=== PATIENT | female | born 1970 | race Caucasian/White ===

== ENCOUNTER 2017-04-07 13:41 | Emergency (ER) | payer OTHER ==
--- NOTE | 2017-04-07 15:41 | DIAGNOSTIC IMAGING REPORT ---
PROCEDURE: XR LUMBAR SPINE 2 OR 3 VIEWS INDICATION: LOWER BACK PAIN TECHNIQUE: Three views of the lumbar spine COMPARISON: None. FINDINGS: Five lumbar-type vertebral bodies are present. Normal vertebral body height without fracture. Normal AP alignment. Mild leftward curvature of the lumbar spine with the apex at the L3-4 level. Mild to moderate diffuse disc space loss with mild anterior endplate spurs. Moderately severe disc space loss at L5-S1. Moderate hypertrophy of the facet joints on the right at the L4-5 level. Surgical clips in the right upper pelvis. Partially imaged bilateral hip arthroplasties. Mildly increased amount of retained stool. IMPRESSION: 1. Mild to moderate diffuse degenerative disc disease. 2. Moderately severe degenerative disc height loss L5-S1. 3. Facet arthropathy on the right at the L4-5 level.
--- NOTE | 2017-04-07 15:50 | ED CLINICAL REPORT ---
Clinical Report - Physicians/Mid Levels [facility] [address] [place] [address] 04/07/2017 13:45 Patient: NARENDRA FALK Time Seen: 13:51. Arrived- By private vehicle. Historian- patient. HISTORY OF PRESENT ILLNESS Chief Complaint: BACK PAIN. Onset- about 1 week ago and it is still present. Modifying factors- worsened by rotation of the body to the right or left, bending over or lifting. Not relieved by anything. It is described as being moderate in degree and in the area of the lower lumbar spine. The quality is noted to be "pain". No bladder dysfunction, bowel dysfunction, sensory loss or motor loss. Patient denies an injury. No other injury. Similar symptoms previously: None. Recent medical care: The patient was seen recently at another facility in the emergency department. ( Patient states she was seen at [facility], where they performed blood work and a urinalysis both of which were negative.). REVIEW OF SYSTEMS No fever, chills, eye discomfort, headache or sore throat. No cough, difficulty breathing, chest pain, skin rash or abdominal pain. No nausea, vomiting, diarrhea, black stools or difficulty with urination. No urinary frequency, hematuria or bloody stools. All systems otherwise negative, except as recorded above. PAST HISTORY Problems: Breast Cancer. Dermatomyositis. Hypertension. Additional Surgeries: Appendectomy. Breast Augmentation. Tonsillectomy. Medications: Hypertension med-pt doesn't know the name. Muscle Relaxant. Tramadol HCL Oral. Allergies: None. SOCIAL HISTORY Smoker- current status unknown. No alcohol use or drug use. ADDITIONAL NOTES The nursing notes have been reviewed. PHYSICAL EXAM Vital Signs: 04/07/2017 13:47 BP: 136/99. HR: 117. RR: 17. O2 saturation: 99%. Temp: 98.4 F. Pain level now: 10/10. Have been reviewed. Appearance: Alert. No acute distress. (The patient appears mildly uncomfortable.). HEENT: Normal external inspection. Eyes: Pupils equal, round and reactive to light. Neck: Normal inspection. Neck nontender. Painless ROM. CVS: Normal heart rate and rhythm. Heart sounds normal. Pulses normal. Respiratory: No respiratory distress. Breath sounds normal. Abdomen: Normal inspection. Soft and nontender. Back: Moderate soft tissue tenderness in the right mid and lower and left mid and lower lumbar area. Mildly limited ROM in the back- in the lumbar spine: decreased flexion, right lateral bending, left lateral bending and rotation to the right and left. No vertebral point tenderness. Skin: Skin warm and dry. Normal skin color. No rash. Normal skin turgor. Extremities: Extremities exhibit normal ROM. Extremities nontender. Neuro: Oriented X 3. Mood/affect normal. No motor deficit. No sensory deficit. LABS, X-RAYS, AND EKG LS-Spine X-rays: Soft tissues normal. No fracture or subluxation. No bony lesion. Views: AP, lateral and obliques. Technique: good. The X-rays were independently viewed by me, interpreted by the radiologist and contemporaneously by me and discussed with the radiologist. Prior films were not available for comparison. Pulse Oximetry: 04/07/2017 13:47 O2 saturation: 99%. (FIO2 - room air). Interpretation: normal. PROGRESS AND PROCEDURES Course of Care: Patient was given IM Dilaudid and Toradol with some symptomatic relief. Lumbar spine x-rays were performed, and found to be unremarkable. I did discuss with the patient that most likely, her pain will blow over in the next couple of weeks; however if the symptoms do not resolveby that time, she should make an appointment with her primary care physician to speak about potentially getting an MRI. Patient and spouse counseled in person regarding the patient's stable condition, test results, diagnosis and need for follow-up. Concerns were addressed. Old medical records reviewed. Disposition: Discharged. Condition: stable and improved. CLINICAL IMPRESSION Muscle strain of the low back. INSTRUCTIONS Apply ice for 20 minutes three times a day as needed and until better. Don't apply ice directly to skin and don't use while asleep. (Your x-ray looks good. The bones and spaces between them are normal.). Warnings: SEDATIVE MEDICATION: You were given sedative medication during your visit. Do not drive or operate dangerous machinery for 6 hours. GENERAL WARNINGS: Return or contact your physician immediately if your condition worsens or changes unexpectedly, if not improving as expected, or if other problems arise. Your Current Medications: CONTINUE TAKING THE FOLLOWING MEDICATIONS: Hypertension med-pt doesn't know the name*. Muscle Relaxant*. Tramadol HCL Oral. Prescription Medications: Hydrocodone/APAP 5mg / 325mg: take 1-2 orally every 4 hours as needed for pain. Dispense twenty (20). No refill. Ibuprofen 800 mg tablets: take 1 tablet orally every 8 hours as needed for pain. Dispense twenty (20). No refill. Follow-up: Follow up with your doctor. Call for the next available appointment. Reason for referral: Discuss potential need for MRI. Understanding of the discharge instructions verbalized by patient. (Electronically signed by Bernarda Flores MD 04/17/2017 10:31)
--- NOTE | 2017-04-07 15:50 | ED NURSING NOTES ---
Clinical Report - Nurses [facility] [place] [address] [place] [address] 04/07/2017 13:45 Patient: NARENDRA FALK TRIAGE Triage time 13:47 Master 2016. Acuity: LEVEL 4. Chief Complaint: BACK PAIN and (pt reports sudden onset of low back pain x 1 week, no known injury, pt seen at [facility] and reports urine/blood work done all negative, denies loss bowel/bladder, was given muscle relaxer, pt then seen at urgent care and rx'd tramadol, reports no relief from either). Alert. No acute distress. RENNY COMA SCORE: [place] Coma Scale: 15- eyes open spontaneously (4); best verbal response- oriented x 4 (5); best motor response- obeys commands (6). --13:54 Remi Delacruz R.N. 13:47 04/07/17. BP: 136/99. HR: 117. RR: 17. O2 saturation: 99%. Temp: 98.4 F. Pain level now: 07/26. --13:54 Remi Delacruz R.N. Weight: 61.2 kg. Height/Length: 66 inches. BMI: 21.8. --13:52 Remi Delacruz R.N. Medications Tramadol HCL Oral. --13:50 Remi Delacruz R.N. Muscle Relaxant. --13:51 Remi Delacruz R.N. Hypertension med-pt doesn't know the name. --13:51 Remi Delacruz R.N. Medication/allergy information source: the patient. --13:54 Remi Delacruz R.N. Allergies None. --13:51 Remi Delacruz R.N. History Arrived by private vehicle. Historian: patient. No history of recent trauma. No numbness, weakness or extremity pain. 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 PAST MEDICAL HX: Tetanus status: up-to-date. Immunizations: up-to-date. Last normal menstrual period now. SOCIAL HX: Heavy tobacco smoker- less than 1 pack per day. No alcohol use or drug use. No infectious disease exposure. ABUSE ASSESSMENT: No report of abuse. SELF HARM ASSESSMENT: A self harm assessment was performed. The patient answered "no" to the question "Do you have thoughts of harming or killing yourself?". FALL RISK ASSESSMENT: Fall risk assessment completed. No fall risk identified. NUTRITIONAL RISK ASSESSMENT: The nutritional risk assessment revealed no deficiencies. FUNCTIONAL ASSESSMENT: Functional assessment: no impairments noted. LEARNING NEEDS ASSESSMENT: The learning needs assessment revealed no barriers. SKIN INTEGRITY ASSESSMENT: Skin integrity risk assessment completed. No skin integrity risk identified. --13:54 Remi Delacruz R.N. PROBLEMS: Breast Cancer. Dermatomyositis. Hypertension. --13:52 eRmi Delacruz R.N. ADDITIONAL SURGERIES: Appendectomy. Breast Augmentation. Tonsillectomy. --13:52 Remi Delacruz R.N. Interventions ID band on patient. --13:54 Remi Delacruz R.N. PHYSICAL ASSESSMENT Ambulatory to room. Patient gowned. GENERAL / NEURO / PSYCH: Alert. Oriented X 4. Appears anxious. RESPIRATORY: Respirations not labored. CVS: Capillary refill less than 2 seconds. EXTREMITIES: Sensation intact in extremities. ROM of extremities within normal limits. BACK: Normal inspection of the neck and back. --13:55 Remi Delacruz R.N. NURSING PROGRESS NOTES Neuro-vascular extremity check. Reassurance given. Patient identifiers checked. Call light placed in reach. Side rails up. Bed placed in lowest position. Brakes of bed on. Patient waiting for evaluation. --13:55 Remi Delacruz R.N. 15:13 04/07/2017 Dilaudid (HYDROmorphone HCl PF) IM 1 mg given. Given in the left gluteus anthony. Allergies verified, confirmed 5 rights and sedative warning given to the patient. --15:13 Remi Delacruz R.N. 15:14 04/07/2017 Toradol (Ketorolac Tromethamine) IM 60 mg given. Given in the right gluteus anthony. Allergies verified and confirmed 5 rights. --15:14 Remi Delacruz R.N. Patient transported to radiology by stretcher with tech. --15:14 Remi Delacruz R.N. 15:31 04/07/17. Patient identifiers checked. Call light placed in reach. Side rails up x 2. Bed placed in lowest position. Brakes of bed on. ( pt reports an improvement in pain "it's a 7 or 8" pt in poc on gurney, s/o at bedside, pt maee, watching tv, waiting plans for dispo). --15:52 Remi Delacruz R.N. DISPOSITION / DISCHARGE No learning barriers present. Discharge instructions provided and reviewed with the patient and spouse. Reviewed medication(s). Prescription(s) given to the patient. Patient verbalized understanding. Written instructions provided in Welsh. The patient was discharged by the physician. She was discharged home and accompanied by spouse. She left the Emergency Department ambulatory and via private vehicle. Spouse driving. ( pt ambulatory with steady gait to [employer], pt dressed self independently upon dispo, to f/u as scheduled with her pcp on tuesday the ). --16:04 Remi Delacruz R.N. 16:02 04/07/17. BP: 132/84. HR: 77. RR: 15. O2 saturation: 100%. Temp: deferred. Pain level now: 04/25. --16:04 Remi Delacruz R.N. Locked/Released at 04/07/2017 18:27 by Remi Delacruz R.N.
--- NOTE | 2017-04-07 15:50 | ED ORDER SUMMARY ---
..... Patient: NARENDRA FALK OrderSheet [facility] VisitID: [id number] [address] [place] [address] 46y, F Registration Date/Time: 04/07/2017 ORDER SHEET Weight: 61.2 kg Allergies: None GENERAL ORDERS: Lumbar Spine 2 or 3V Urgent (15:00 04/07/2017 Ev MATHUR) (Ack 15:07 Ambrocio) (15:14 KPaprudence-Kareem R.N.) MEDICATION ORDERS: Dilaudid IM 1 mg (HIGH ALERT MEDICATION, NOW) (15:04 04/07/2017 Ev MATHUR) (Ack 15:05 KPaprudence-Sheban R.N.) (15:13 KPage-Sheban R.N.) Toradol IM 60 mg (NOW) (15:04 04/07/2017 Ev MATHUR) (Ack 15:05 KPaprudence-Kareem R.N.) (15:14 KPaprudence-Sheban R.N.) IV FLUIDS: ORDER SHEET NOTES: [Electronically signed by Remi Delacruz R.N. (18:04/07/2017)] [Electronically signed by Bernarda Flores MD (10:31 04/17/2017)] [Electronically locked/signed by Remi Delacruz R.N. (18:27 04/07/2017)]
--- NOTE | 2017-04-07 15:50 | ED ORDER SUMMARY ---
..... Patient: NARENDRA FALK OrderSheet [facility] VisitID: [id number] [address] [place] [address] 46y, F Registration Date/Time: 04/07/2017 ORDER SHEET Weight: 61.2 kg Allergies: None GENERAL ORDERS: Lumbar Spine 2 or 3V Urgent (15:00 04/07/2017 Ev MATHUR) (Ack 15:07 Ambrocio) (15:14 KPaprudence-Kareem R.N.) MEDICATION ORDERS: Dilaudid IM 1 mg (HIGH ALERT MEDICATION, NOW) (15:04 04/07/2017 Ev MATHUR) (Ack 15:05 KPaprudence-Sheban R.N.) (15:13 KPage-Sheban R.N.) Toradol IM 60 mg (NOW) (15:04 04/07/2017 Ev MATHUR) (Ack 15:05 KPaprudence-Kareem R.N.) (15:14 KPaprudence-Sheban R.N.) IV FLUIDS: ORDER SHEET NOTES: [Electronically signed by Remi Delacruz R.N. (18:04/07/2017)] [Electronically signed by Bernarda Flores MD (10:31 04/17/2017)] [Electronically locked/signed by Remi Delacruz R.N. (18:27 04/07/2017)]
--- NOTE | 2017-04-07 15:50 | ED NURSING NOTES ---
Clinical Report - Nurses Located Within [facility] [place] [address] [place] [address] 04/07/2017 13:45 Patient: NARENDRA FALK TRIAGE Triage time 13:47 Master 2016. Acuity: LEVEL 4. Chief Complaint: BACK PAIN and (pt reports sudden onset of low back pain x 1 week, no known injury, pt seen at [facility] and reports urine/blood work done all negative, denies loss bowel/bladder, was given muscle relaxer, pt then seen at urgent care and rx'd tramadol, reports no relief from either). Alert. No acute distress. RENNY COMA SCORE: [place] Coma Scale: 15- eyes open spontaneously (4); best verbal response- oriented x 4 (5); best motor response- obeys commands (6). --13:54 Remi Delacruz R.N. 13:47 04/07/17. BP: 136/99. HR: 117. RR: 17. O2 saturation: 99%. Temp: 98.4 F. Pain level now: 07/26. --13:54 Remi Delacruz R.N. Weight: 61.2 kg. Height/Length: 66 inches. BMI: 21.8. --13:52 Remi Delacruz R.N. Medications Tramadol HCL Oral. --13:50 Remi Delacruz R.N. Muscle Relaxant. --13:51 Remi Delacruz R.N. Hypertension med-pt doesn't know the name. --13:51 Remi Delacruz R.N. Medication/allergy information source: the patient. --13:54 Remi Delacruz R.N. Allergies None. --13:51 Remi Delacruz R.N. History Arrived by private vehicle. Historian: patient. No history of recent trauma. No numbness, weakness or extremity pain. 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 PAST MEDICAL HX: Tetanus status: up-to-date. Immunizations: up-to-date. Last normal menstrual period now. SOCIAL HX: Heavy tobacco smoker- less than 1 pack per day. No alcohol use or drug use. No infectious disease exposure. ABUSE ASSESSMENT: No report of abuse. SELF HARM ASSESSMENT: A self harm assessment was performed. The patient answered "no" to the question "Do you have thoughts of harming or killing yourself?". FALL RISK ASSESSMENT: Fall risk assessment completed. No fall risk identified. NUTRITIONAL RISK ASSESSMENT: The nutritional risk assessment revealed no deficiencies. FUNCTIONAL ASSESSMENT: Functional assessment: no impairments noted. LEARNING NEEDS ASSESSMENT: The learning needs assessment revealed no barriers. SKIN INTEGRITY ASSESSMENT: Skin integrity risk assessment completed. No skin integrity risk identified. --13:54 Remi Delacruz R.N. PROBLEMS: Breast Cancer. Dermatomyositis. Hypertension. --13:52 Remi Delacruz R.N. ADDITIONAL SURGERIES: Appendectomy. Breast Augmentation. Tonsillectomy. --13:52 Remi Delacruz R.N. Interventions ID band on patient. --13:54 Remi Delacruz R.N. PHYSICAL ASSESSMENT Ambulatory to room. Patient gowned. GENERAL / NEURO / PSYCH: Alert. Oriented X 4. Appears anxious. RESPIRATORY: Respirations not labored. CVS: Capillary refill less than 2 seconds. EXTREMITIES: Sensation intact in extremities. ROM of extremities within normal limits. BACK: Normal inspection of the neck and back. --13:55 Remi Delacruz R.N. NURSING PROGRESS NOTES Neuro-vascular extremity check. Reassurance given. Patient identifiers checked. Call light placed in reach. Side rails up. Bed placed in lowest position. Brakes of bed on. Patient waiting for evaluation. --13:55 Remi Delacruz R.N. 15:13 04/07/2017 Dilaudid (HYDROmorphone HCl PF) IM 1 mg given. Given in the left gluteus anthony. Allergies verified, confirmed 5 rights and sedative warning given to the patient. --15:13 Remi Delacruz R.N. 15:14 04/07/2017 Toradol (Ketorolac Tromethamine) IM 60 mg given. Given in the right gluteus anthony. Allergies verified and confirmed 5 rights. --15:14 Remi Delacruz R.N. Patient transported to radiology by stretcher with tech. --15:14 Remi Delacruz R.N. 15:31 04/07/17. Patient identifiers checked. Call light placed in reach. Side rails up x 2. Bed placed in lowest position. Brakes of bed on. ( pt reports an improvement in pain "it's a 7 or 8" pt in poc on gurney, s/o at bedside, pt maee, watching tv, waiting plans for dispo). --15:52 Remi Delacruz R.N. DISPOSITION / DISCHARGE No learning barriers present. Discharge instructions provided and reviewed with the patient and spouse. Reviewed medication(s). Prescription(s) given to the patient. Patient verbalized understanding. Written instructions provided in Greek. The patient was discharged by the physician. She was discharged home and accompanied by spouse. She left the Emergency Department ambulatory and via private vehicle. Spouse driving. ( pt ambulatory with steady gait to [employer], pt dressed self independently upon dispo, to f/u as scheduled with her pcp on tuesday the ). --16:04 Remi Delacruz R.N. 16:02 04/07/17. BP: 132/84. HR: 77. RR: 15. O2 saturation: 100%. Temp: deferred. Pain level now: 04/25. --16:04 Remi Delacruz R.N. Locked/Released at 04/07/2017 18:27 by Remi Delacruz R.N.
--- NOTE | 2017-04-17 10:31 | ED MED RECONCILIATION SUMMARY ---
Patient: NARENDRA FALK Medication Reconciliation Report [facility] VisitID: [id number] [address] [place] [address] 46y, F Registration Date/Time: 04/07/2017 Weight: 61.2 kg Height/Length: 66 in. BMI: 21.8 ALLERGIES: None The patient's Home Medications are listed below: CONTINUE TAKING THE FOLLOWING MEDICATIONS: Hypertension med-pt doesn't know the name Muscle Relaxant Tramadol HCL Oral The source(s) of the original Home Medication information: patient The following Medications were given to the patient in the Emergency Department: Dilaudid [IM] IM 1 mg, administered: 04/07/2017 3:13:00 PM Toradol [IM] IM 60 mg, administered: 04/07/2017 3:14:00 PM The following Medications were prescribed to the patient: Hydrocodone/APAP 5mg / 325mg: take 1-2 orally every 4 hours as needed for pain. Dispense twenty (20). No refill. -- Bernarda Flores MD Ibuprofen 800 mg tablets: take 1 tablet orally every 8 hours as needed for pain. Dispense twenty (20). No refill. -- Bernarda Flores MD
--- NOTE | 2017-04-17 10:31 | ED MAR SUMMARY ---
..... Medication Administration Record [facility] [address] [place] [address] Patient: NARENDRA FALK Visit ID: [id number] 46y, F Weight: 61.2 kg Height/Length: 66 in BMI: 21.8 ALLERGIES: None Given 15:13 04/07/2017 Remi Delacruz, RAlpaNAlpa Medication Administered: DILAUDID [IM] (HYDROMORPHONE HCL PF), Dose: 1 mg IM. Medication Ordered: Dilaudid IM 1 mg (HIGH ALERT MEDICATION, NOW). Given 15:14 04/07/2017 Remi Delacruz, RAlpaN. Medication Administered: TORADOL [IM] (KETOROLAC TROMETHAMINE), Dose: 60 mg IM. Medication Ordered: Toradol IM 60 mg (NOW).
--- NOTE | 2017-04-17 10:31 | ED DISCHARGE INSTRUCTIONS ---
Patient: NARENDRA FALK General Instructions [facility] VisitID: [id number] [place] [address] 46y, F Registration Date/Time: 04/07/2017 Muscle strain of the low back. INSTRUCTIONS Apply ice for 20 minutes three times a day as needed and until better. Don't apply ice directly to skin and don't use while asleep. (Your x-ray looks good. The bones and spaces between them are normal.). Warnings: SEDATIVE MEDICATION: You were given sedative medication during your visit. Do not drive or operate dangerous machinery for 6 hours. GENERAL WARNINGS: Return or contact your physician immediately if your condition worsens or changes unexpectedly, if not improving as expected, or if other problems arise. Your Current Medications: CONTINUE TAKING THE FOLLOWING MEDICATIONS: Hypertension med-pt doesn't know the name*. Muscle Relaxant*. Tramadol HCL Oral. Prescription Medications: Hydrocodone/APAP 5mg / 325mg: take 1-2 orally every 4 hours as needed for pain. Dispense twenty (20). No refill. Ibuprofen 800 mg tablets: take 1 tablet orally every 8 hours as needed for pain. Dispense twenty (20). No refill. Follow-up: Follow up with your doctor. Call for the next available appointment. Reason for referral: Discuss potential need for MRI. Understanding of the discharge instructions verbalized by patient. ADDITIONAL INFORMATION Back Pain [Acute Or Chronic] Back pain is usually caused by an injury to the muscles or ligaments of the spine. Sometimes the disks that separate each bone in the spine may bulge and cause pain by pressing on a nearby nerve. Back pain may also appear after a sudden twisting/bending force (such as in a car accident), after a simple awkward movement, or lifting something heavy with poor body positioning. In either case, muscle spasm is often present and adds to the pain. Acute back pain usually gets better in one to two weeks. Back pain related to disk disease, arthritis in the spinal joints or spinal stenosis (narrowing of the spinal canal) can become chronic and last for months or years. Unless you had a physical injury (for example, a car accident or fall) X-rays are usually not ordered for the initial evaluation of back pain. If pain continues and does not respond to medical treatment, x-rays and other tests may be performed at a later time. Home Care: You may need to stay in bed the first few days. But, as soon as possible, begin sitting or walking to avoid problems with prolonged bed rest (muscle weakness, worsening back stiffness and pain, blood clots in the legs). When in bed, try to find a position of comfort. A firm mattress is best. Try lying flat on your back with pillows under your knees. You can also try lying on your side with your knees bent up towards your chest and a pillow between your knees. Avoid prolonged sitting. This puts more stress on the lower back than standing or walking. During the first two days after injury, apply an ICE PACK to the painful area for 20 minutes every 2-4 hours. This will reduce swelling and pain. HEAT (hot shower, hot bath or heating pad) works well for muscle spasm. You can start with ice, then switch to heat after two days. Some patients feel best alternating ice and heat treatments. Use the one method that feels the best to you. You may use acetaminophen (Tylenol) or ibuprofen (Motrin, Advil) to control pain, unless another pain medicine was prescribed. [NOTE: If you have chronic liver or kidney disease or ever had a stomach ulcer or GI bleeding, talk with your doctor before using these medicines.] Be aware of safe lifting methods and do not lift anything over 15 pounds until all the pain is gone. Follow Up with your doctor or this facility if your symptoms do not start to improve after one week. Physical therapy may be needed. [NOTE: If X-rays were taken, they will be reviewed by a radiologist. You will be notified of any new findings that may affect your care.] Get Prompt Medical Attention if any of the following occur: Pain becomes worse or spreads to your legs Weakness or numbness in one or both legs Loss of bowel or bladder control Numbness in the groin or genital area You have been given the following additional information: Back Pain (Acute Or Chronic) (Electronically signed by Bernarda Flores MD 04/17/2017 10:31)
--- NOTE | 2017-04-17 10:31 | ED MAR SUMMARY ---
..... Medication Administration Record [facility] [address] [place] [address] Patient: NARENDRA FALK Visit ID: [id number] 46y, F Weight: 61.2 kg Height/Length: 66 in BMI: 21.8 ALLERGIES: None Given 15:13 04/07/2017 Remi Delacruz, RAlpaNAlpa Medication Administered: DILAUDID [IM] (HYDROMORPHONE HCL PF), Dose: 1 mg IM. Medication Ordered: Dilaudid IM 1 mg (HIGH ALERT MEDICATION, NOW). Given 15:14 04/07/2017 Remi Delacruz, RAlpaN. Medication Administered: TORADOL [IM] (KETOROLAC TROMETHAMINE), Dose: 60 mg IM. Medication Ordered: Toradol IM 60 mg (NOW).
--- NOTE | 2017-04-17 10:31 | ED MED RECONCILIATION SUMMARY ---
Patient: NARENDRA FALK Medication Reconciliation Report [facility] VisitID: [id number] [address] [place] [address] 46y, F Registration Date/Time: 04/07/2017 Weight: 61.2 kg Height/Length: 66 in. BMI: 21.8 ALLERGIES: None The patient's Home Medications are listed below: CONTINUE TAKING THE FOLLOWING MEDICATIONS: Hypertension med-pt doesn't know the name Muscle Relaxant Tramadol HCL Oral The source(s) of the original Home Medication information: patient The following Medications were given to the patient in the Emergency Department: Dilaudid [IM] IM 1 mg, administered: 04/07/2017 3:13:00 PM Toradol [IM] IM 60 mg, administered: 04/07/2017 3:14:00 PM The following Medications were prescribed to the patient: Hydrocodone/APAP 5mg / 325mg: take 1-2 orally every 4 hours as needed for pain. Dispense twenty (20). No refill. -- Bernarda Flores MD Ibuprofen 800 mg tablets: take 1 tablet orally every 8 hours as needed for pain. Dispense twenty (20). No refill. -- Bernarda Flores MD
== END 2017-04-07 15:59 | disposition home or self-care (01) ==
LOC: ED SRH 13:41
DX: S39.012A Strain of muscle, fascia and tendon of lower back, initial encounter (principal); I10 Essential (primary) hypertension; X50.1XXA Overexertion from prolonged static or awkward postures, initial encounter; Y93.9 Activity, unspecified; Y99.9 Unspecified external cause status; Y92.9 Unspecified place or not applicable; Z79.899 Other long term (current) drug therapy